=== PATIENT | female | born 1990 | race Caucasian/White ===

== ENCOUNTER 2017-03-13 02:14 | Inpatient (IN) | payer OTHER ==
[~2017-03-13] VITALS: Ht 162.6 cm; Wt 88.3 kg
[~2017-03-13 02:14] MED LIST: CEPH-443 PO
[2017-03-13 02:29] VITALS: Ht 162.6 cm; Wt 88.3 kg
[2017-03-13 02:30] VITALS: BP 117/61; PULSE 68; RESP 18
[2017-03-13] MEDS ORDERED: LACTATED RINGER'S 1,000 ML IV ONE (03:00)
[2017-03-13] MEDS ORDERED: MISOPROSTOL 200 MCG TAB PR PRN ×2 (03:00→11:00)
[2017-03-13] MEDS ORDERED: CEFAZOLIN 2 GM/50 ML (PMX) 50 ML IV SCH (03:00)
[2017-03-13] MEDS ORDERED: CARBOPROST 250 MCG INJ IM PRN ×2 (03:00→11:00)
[2017-03-13] MEDS ORDERED: METHYLERGONOVINE 0.2 MG INJ IM PRN ×2 (03:00→11:00)
[2017-03-13] MEDS ORDERED: OXYTOCIN 30 UNITS/LR 500 ML IV SCH (03:00)
[2017-03-13] MEDS ORDERED: OXYTOCIN 30 UNITS/LR 500 ML IV PRN ×2 (03:00→11:00)
--- NOTE | 2017-03-13 03:21 | TRIAGE ---
OB Triage Datetime Report Generated by CPN: 03/13/2017 03:21 Datetime: 03/13/2017 03:15 Assessment Type: Admission Assessment Vaginal Bleeding: None Maternal Assessment Level of Consciousness: Fully Conscious DTR's/Clonus: DTRs 2+; No Clonus Headache: Denies Blurred Vision: No Respiratory Effort: Unlabored; Regular Rhythm; Equal Expansion Breath Sounds, Left: Clear and Equal Breath Sounds, Right: Clear and Equal Nausea/Vomiting: Denies RUQ Epigastric Pain: Denies Lower Extremities Edema: None Degree: None Upper Extremities Edema: None Degree: None Facial Edema: None Fall Risk Assessment History of Falling: (0) No Secondary Diagnosis: (0) No Ambulatory Aid: (0) Bedrest/Nurse Assist IV Therapy: (20) Yes Gait: (0) Normal/Bedrest/Immobile Mental Status: (0) Oriented to Own Ability Fall Score: 20 Fall Risk Score Definition: No Risk: No action required Labor Evaluation Frequency: 3-7 Duration (sec)2399: 60-90 Quality: Strong Pattern: Normal: <= 5 Contractions in 10 Minutes Resting Tone [place]: Relaxed Heart Rate FHR Baseline Rate: 135 Variability: Moderate 6-25 bpm Accelerations: 15X15 Decelerations: None Category: Category I Pain Assessment Pain Scale: 9 Pain Presence: Intermittent Pain Type: Contraction Pain Location: Abdomen Pain Goal: 3 Membrane Status: Intact Datetime: 03/13/2017 02:38 Vaginal Exam Dilatation (cms): 3.0 Effacement (%): 90 Station: -2 Exam By: TM Datetime: 03/13/2017 02:32 Stage of : OB Triage Assessment Type: Triage Maternal Assessment Level of Consciousness: Fully Conscious DTR's/Clonus: DTRs 2+; No Clonus Headache: Denies Blurred Vision: No Respiratory Effort: Unlabored Nausea/Vomiting: Denies RUQ Epigastric Pain: Denies Lower Extremities Edema: None Degree: None Upper Extremities Edema: None Degree: None Facial Edema: None Datetime: 03/13/2017 02:26 Time of Arrival: 03/13/2017 02:44 EGA: 39.0 Arrived By: Wheelchair Arrived From: Emergency Dept Datetime: 03/13/2017 02:25 Time of Arrival: 03/13/2017 02:05 Arrived By: Wheelchair Arrived From: Emergency Dept Chief Complaint: CONTRACTIONS Movement: Present Contractions: Regular Time Contractions Began: 03/12/2017 22:00 Contractions: 5 MIN Rupture of Membranes: Denies Vaginal Bleeding: None Vaginal Discharge: Denies Recent Sexual Intercouse: Denies Abdominal Trauma: Not Applicable Patient Complaints: Contractions Time Provider Notified: 03/13/2017 02:43 Provider Notified: MANNY Initial Plan: VE Datetime: 03/13/2017 02:21 Monitor Mode: External Contraction Comments: TOCO APPLIED Monitor Mode: External US Comments: US APPLIED Datetime: 03/13/2017 02:16 Membrane Status: Intact
[2017-03-13 03:30] LABS: ADD SCAN DIFF NO
[2017-03-13 03:56] LABS: BASOPHILS % 0.3 % (0.0-2.0); EOSINOPHILS # 0.1 10^3/ul (0.0-0.5); EOSINOPHILS % 1.1 % (0.0-7.0); HEMATOCRIT 36.7 % (37.0-47.0); LYMPHOCYTES # 2.8 10^3/ul (0.8-2.9); LYMPHOCYTES % 28.1 % (15.0-51.0); MEAN CORPUSCULAR HEMOGLOBIN 29.3 pg (29.0-33.0); MEAN CORPUSCULAR HGB CONC 32.7 g/dl (32.0-37.0); MEAN CORPUSCULAR VOLUME 89.7 fl (82.0-101.0); MONOCYTE # 0.6 10^3/ul (0.3-0.9); MONOCYTES % 5.8 % (0.0-11.0); NEUTROPHIL # 6.4 10^3/ul (1.6-7.5); NEUTROPHILS % 63.9 % (39.0-77.0); PLATELET COUNT 213 10^3/UL (140-415); RED BLOOD COUNT 4.09 10^6/ul (4.20-5.40); RED CELL DISTRIBUTION WIDTH 13.4 % (11.5-14.5); WHITE BLOOD COUNT 10.1 10^3/ul (4.8-10.8)
[2017-03-13 03:59] LABS: INR 0.86; PROTIME 11.7 Sec (12.2-14.2); PT RATIO 0.9
[2017-03-13 04:59] LABS: PARTIAL THROMBOPLASTIN TIME 25.7 Sec (25.0-35.0)
[2017-03-13] MEDS ORDERED: morphine SULFATE/PF (10 MG/10 ML) INJ ONE (06:20)
[2017-03-13] MEDS ORDERED: METOCLOPRAMIDE 10 MG INJ ONE (06:21)
[2017-03-13] MEDS ORDERED: KETOROLAC 30 MG INJ ONE (06:21)
[2017-03-13] MEDS ORDERED: MEPERIDINE 25 MG INJ IV PRN (07:00)
[2017-03-13] MEDS ORDERED: ONDANSETRON 4 MG INJ IV PRN ×3 (07:00→11:00)
[2017-03-13] MEDS ORDERED: HYDROmorphONE (0.2 MG/ML) 10ML SYG IV PRN ×3 (07:00)
[2017-03-13] MEDS ORDERED: DIPHENHYDRAMINE 50 MG INJ IV PRN ×3 (07:00→11:00)
[2017-03-13] MEDS ORDERED: FENTAnyl 50 MCG/ML VIAL ONE (07:00)
[2017-03-13] MEDS ORDERED: METOCLOPRAMIDE 10 MG INJ IV PRN (07:00)
[2017-03-13] MEDS ORDERED: HYDROmorphONE 1 MG/ML SYG IV PRN ×3 (07:30)
[2017-03-13] MEDS ORDERED: NALOXONE (0.4 MG/ML) INJ IV PRN (07:30)
--- NOTE | 2017-03-13 08:10 | HP ---
Date/Time of Note Date/Time of Note DATE: 03/13/17 TIME: 08:00 OB - History Hx of Present Free Text/Dictation 26y.o at 39week with previous c/s in labor with intact membrane. ve 3cm 90% -2 prepare for repeat c/s after proper consent Chief Complaint: in labor : 3 Para: 1 Spontaneous : 0 Therapeutic : 0 Care: Good Care Ultrasounds: Normal mid trimester US Obstetrical Complications: None Medical Complications: None Past Family/Social History * Past Medical, Surgical, Family and Obstetric Histories reviewed from chart. Blood Type: O+ Rubella: immune RPR/VDRL: Negative GBS Status: Negative HBsAG: Negative OB Admission Exam Vital Signs Vital Signs Vital Signs Date Time Temp Pulse Resp B/P Pulse Ox O2 Delivery O2 Flow Rate FiO2 03/13/17 02:30 98.1 68 18 117/61 Room Air Physical Exam HEENT: WNL Heart: Rhythm Normal Lungs: Clear, Equal Abdomen: WNL Extremities: Normal Reflexes: Normal Cervical Dilatation: 3cm Effacement: Other (90%) Station: -2 Membranes: Intact Heart Rate: 140's Accelerations: Accelerations Present Decelerations: No Decelerations Varibility: Moderate Contractions on Admission: 6-10 Minutes Apart Intensity: Moderate Last 72 hours Lab Results CBC & BMP 03/13/17 02:54 OB Assessment/Plan Reason for admission: active labor Plan: Section SATHYA BRYANT MD Mar 13, 2017 08:10
[2017-03-13] MEDS: KETOROLAC 30 MG INJ IV PRN (09:37)
[2017-03-13 10:30] VITALS: BP 115/62; PULSE 69; RESP 16
[2017-03-13] MEDS ORDERED: LANOLIN 7 GM TUBE TOP PRN (11:00)
[2017-03-13] MEDS ORDERED: ZOLPIDEM 5 MG TAB PO PRN (11:00)
[2017-03-13] MEDS ORDERED: IBUPROFEN 600 MG TAB PO SCH (12:00)
[2017-03-13 12:31] VITALS: BP 126/58; PULSE 72; RESP 16
[2017-03-13] MEDS: LACTATED RINGER'S 1,000 ML IV SCH ×2 (12:31→18:59)
[2017-03-13 16:09] VITALS: BP 110/65; PULSE 61; RESP 14
[2017-03-13 19:45] VITALS: BP 107/65; PULSE 81; RESP 18
[2017-03-13] MEDS: SENNA/DOCUSATE NA (8.6MG/50MG) TAB PO SCH (21:00)
[2017-03-13 23:45] VITALS: BP 97/63; PULSE 88; RESP 17
[2017-03-14] MEDS: LACTATED RINGER'S 1,000 ML IV SCH (03:16)
[2017-03-14 03:45] VITALS: BP 106/53; PULSE 84; RESP 18
[2017-03-14] MEDS: KETOROLAC 30 MG INJ IV PRN (05:09)
[2017-03-14 07:39] LABS: ADD SCAN DIFF NO
[2017-03-14 07:47] LABS: BASOPHILS % 0.2 % (0.0-2.0); EOSINOPHILS % 0.3 % (0.0-7.0); HEMATOCRIT 28.4 % (37.0-47.0); HEMOGLOBIN 8.9 g/dl (12.0-16.0); LYMPHOCYTES # 1.9 10^3/ul (0.8-2.9); LYMPHOCYTES % 16.1 % (15.0-51.0); MEAN CORPUSCULAR HEMOGLOBIN 28.6 pg (29.0-33.0); MEAN CORPUSCULAR HGB CONC 31.3 g/dl (32.0-37.0); MEAN CORPUSCULAR VOLUME 91.3 fl (82.0-101.0); MEAN PLATELET VOLUME 12.8 fl (7.4-10.4); MONOCYTE # 0.5 10^3/ul (0.3-0.9); MONOCYTES % 4.7 % (0.0-11.0); PLATELET COUNT 139 10^3/UL (140-415); RED BLOOD COUNT 3.11 10^6/ul (4.20-5.40); RED CELL DISTRIBUTION WIDTH 13.8 % (11.5-14.5); WHITE BLOOD COUNT 11.5 10^3/ul (4.8-10.8)
[2017-03-14 08:00] VITALS: BP 98/58; PULSE 80; RESP 18
[2017-03-14] MEDS: IBUPROFEN 600 MG TAB PO SCH ×4 (08:00→23:49)
[2017-03-14] MEDS: SENNA/DOCUSATE NA (8.6MG/50MG) TAB PO SCH ×2 (09:34→22:17)
--- NOTE | 2017-03-14 10:58 | PN ---
Date/Time of Note Date/Time of Note DATE: 03/14/17 TIME: 10:31 Anesthesia post op note: A 26 year female s/p duramorph, POD #1 is doing well, pain is controlled, no headache,n/v, back pain, itching. back is clean. care per surgery team. Assessment/Plan VTE Prophylaxis VTE Prophylaxis Intervention: ambulation Lines/Catheters IV Catheter Type (from Nrsg): Peripheral IV Exam/Review of Systems Vital Signs Vitals Vital Signs Date Time Temp Pulse Resp B/P Pulse Ox O2 Delivery O2 Flow Rate FiO2 03/14/17 08:00 98.3 80 18 98/58 Room Air Intake and Output 03/13/17 03/13/17 03/14/17 14:59 22:59 06:59 Intake Total 500 ml 1575 ml 250 ml Output Total 900 ml 450 ml 1350 ml Balance -400 ml 1125 ml -1100 ml Results Result Diagram: 03/14/17 0640 Results 24 hrs Laboratory Tests Test 03/14/17 06:40 White Blood Count 11.5 H Red Blood Count 3.11 #L Hemoglobin 8.9 #L Hematocrit 28.4 #L Mean Corpuscular Volume 91.3 Mean Corpuscular Hemoglobin 28.6 L Mean Corpuscular Hemoglobin Concent 31.3 L Red Cell Distribution Width 13.8 Platelet Count 139 #L Mean Platelet Volume 12.8 H Neutrophils % 78.0 H Lymphocytes % 16.1 Monocytes % 4.7 Eosinophils % 0.3 Basophils % 0.2 Nucleated Red Blood Cells % 0.0 Neutrophils # 9.0 H Lymphocytes # 1.9 Monocytes # 0.5 Eosinophils # 0.0 Basophils # 0.0 Nucleated Red Blood Cells # 0.0 Medications Medications Current Medications Lactated Ringer's (Lr) 1,000 ml @ 125 mls/hr Q8H IV Last administered on t 03:16; Admin Dose 125 MLS/HR; Start 03/13/17 at 10:55 Oxycodone/ Acetaminophen (Percocet (5/ 325)) 1 tab Q4H PRN PO PAIN LEVEL 4-6; Start 03/13/17 at 11:00 Oxycodone/ Acetaminophen (Percocet (5/ 325)) 2 tab Q4H PRN PO PAIN LEVEL 7-10; Start 03/13/17 at 11:00 Simethicone (Mylicon) 160 mg Q8H PRN PO DISTENSION/GAS/BLOATING; Start at 11:00 Senna/Docusate Sodium (Senokot-S) 1 tab BID PO Last administered on 03/14/17t 09:34; Admin Dose 1 TAB; Start 03/13/17 at 21:00 Diphtheria/ Tetanus/Acell Pertussis 0.5 ml 0.5 ml ONCE ONCE IM* ; Start at 09:00; Stop 03/16/17 at 09:01 Oxytocin/Lactated Ringer's 500 ml @ 0 mls/hr ONCE PRN IV For Hemorrhage Management; Start 03/13/17 at 11:00 Methylergonovine Maleate (Methergine) 0.2 mg ONCE PRN IM VAGINAL BLEEDING; Start 03/13/17 at 11:00 Carboprost Tromethamine (Hemabate) 250 mcg ONCE PRN IM VAGINAL BLEEDING; Start 03/13/17 at 11:00 Misoprostol (Cytotec) 1,000 mcg ONCE PRN MO VAGINAL BLEEDING; Start 03/13/17 at 11:00 Diphenhydramine HCl (Benadryl) 25 mg Q6H PRN IV PRURITUS; Start 03/13/17 at 11: 00 Ondansetron HCl (Zofran Inj) 4 mg Q6H PRN IV NAUSEA AND/OR VOMITING; Start at 11:00 Zolpidem Tartrate (Ambien) 10 mg QHS PRN PO INSOMNIA; Start 03/13/17 at 11:00 Ibuprofen (Motrin) 600 mg Q6 PO ; Start 03/14/17 at 08:00 SANNA CHOE MD Mar 14, 2017 10:58
[2017-03-14 12:00] VITALS: BP 105/58; PULSE 79; RESP 18
[2017-03-14] MEDS: OXYCODONE/ACETAMINOPHEN (5/325) TAB PO PRN ×2 (12:59→18:15)
[2017-03-14 16:00] VITALS: BP 103/51; PULSE 80; RESP 20
--- NOTE | 2017-03-14 18:21 | PN ---
Date/Time of Note Date/Time of Note DATE: 03/14/17 TIME: 18:18 OB Subjective Subjective Subjective no flatus no specific c/o OB Objective Objective Objective vss afebrile abdomen soft wound dry lochia min calf no tenderness OB Assessment/Plan Other Assessment: stable postc/s #1 Other plan: as ordered SATHYA BRYANT MD Mar 14, 2017 18:21
[2017-03-14 20:00] VITALS: BP 108/54; PULSE 85; RESP 20
[2017-03-15] MEDS: OXYCODONE/ACETAMINOPHEN (5/325) TAB PO PRN ×2 (01:56→16:38)
[2017-03-15 04:30] VITALS: BP 107/57; PULSE 71
[2017-03-15] MEDS: IBUPROFEN 600 MG TAB PO SCH ×4 (05:46→23:50)
--- NOTE | 2017-03-15 06:44 | OPR ---
DATE OF OPERATION: 03/13/2017 PREOPERATIVE DIAGNOSIS: Intrauterine 39 weeks, previous section, in labor at 39 weeks. POSTOPERATIVE DIAGNOSES: 1. Intrauterine 39 weeks, previous section, in labor at 39 weeks. 2. Delivered normal female . OPERATION PERFORMED: Repeat low transverse section. ANESTHESIA: Spinal. ANESTHESIOLOGIST: Dr. Meyers REAL ESTATE SALES AGENT: Dr. Cota SURGEON: Marquis Hamlin MD ESTIMATED BLOOD LOSS: Approximately 600 mL PROCEDURE: Under appropriate induction of spinal anesthesia, the patient was placed in the frog pos ition. Bejarano catheter was introduced into the bladder under sterile condition, repositioned to supi ne. Abdominal wall was prepped and draped in usual aseptic manner. A transverse incision was made approximately 2 fingers above the pubic rami. Incision was carried down through subcutaneous tissue to the anterior rectus fascia, which was incised transversely in length of the incision. Fascial f lap was created by blunt and sharp dissection of tendinous attachment ____ rectus muscle split, vin toneal cavity was entered ____. Low portion of uterus was exposed. There were ____ adhesions of di stal portion of omentum from the previous surgery, especially on the right side of the pelvic area. The low portion of uterus was exposed. The incision was made above the uterovesical reflection abo ve this previous scar because the low portion was ____ and fibrotic. Incision was made in layer by layer transversely, reached the amniotic membrane which was ruptured, revealed clear amniotic fluid, and uterine incision was extended bilaterally with the bandage scissors, and normal female w as born, left occiput transverse position. Mouth and nose were cleaned, and cord was clamped and cu t, handed to the respiratory care personnel for further care. Cord blood was obtained. Placenta wa s removed manually, and cavity was completely explored after uterus was exteriorized. Incision was closed using #1 chromic catgut in continuous manner, but there was on the right lateral aspect exten scot of the incision site down to the low portion under the bladder which was separately closed incl uding the uterine incision and extension of the incision was putting together, and there was small h ematoma which was also taken care of after the first layer of closure. Rest of the uterine incision was closed using #1 chromic catgut in continuous manner including extension area, 0 chromic catgut was used for the first layer of closure. Uterus was relocated to the abdominal cavity. After irrig ation done, sponge count was correct, and rechecked right side of the uterine incision, and there wa s a little oozing, and then uterus brought out and then checked again, and additional 0 chromic catg ut was placed to control the bleeder separately, which was satisfactory controlled. Uterus was relo cated into abdominal cavity and the incisional site rechecked, which was intact. Final sponge count taken which was correct. A piece of Surgicel was placed on the right aspect of the incision. Annie etal peritoneum was closed using 0 chromic catgut in continuous manner. Muscle closed with 0 chromi c catgut in continuous manner. Fascia closed with #1 Vicryl in continuous manner in 2 segments afte r the bleeder controlled properly under the fascia, and a piece of Surgicel was placed under the fas tamara. Subcutaneous was irrigated with water, and this layer was approximated with 2-0 plain in corey nuous manner. Skin closed with Insorb. Steri-Strip applied. A pressure dressing applied. Estimat ed blood loss approximately 600 mL. The patient withstood procedure well, sent to the recovery room in good condition. Dictated By: MARQUIS NOLASCO/MAGGIE Conf#: [id number] DID#: [id number]
[2017-03-15 08:41] VITALS: BP 110/62; PULSE 80; RESP 17
[2017-03-15] MEDS: SENNA/DOCUSATE NA (8.6MG/50MG) TAB PO SCH ×2 (09:20→21:00)
--- NOTE | 2017-03-15 13:17 | PN ---
Date/Time of Note Date/Time of Note DATE: 03/15/17 TIME: 13:14 OB Subjective Subjective Subjective had bowel movement no c/o OB Objective Objective Objective vss afbrile abdomen soft wound dry lochia min calf no tenderness OB Assessment/Plan Other Assessment: satisfactory Other plan: d/s home in am SATHYA BRYANT MD Mar 15, 2017 13:17
[2017-03-15 15:20] VITALS: BP 105/59; PULSE 80; RESP 22
[2017-03-15 20:00] VITALS: BP 117/59; PULSE 73; RESP 20
[2017-03-16] MEDS: OXYCODONE/ACETAMINOPHEN (5/325) TAB PO PRN (01:45)
[2017-03-16 04:16] VITALS: BP 91/50; PULSE 65; RESP 20
[2017-03-16] MEDS: IBUPROFEN 600 MG TAB PO SCH ×2 (05:49→12:17)
[2017-03-16 09:00] VITALS: BP 104/70; PULSE 80; RESP 19
[2017-03-16] MEDS ORDERED: DIPHTH/TET/ACEL PERTUSS (ADULT) 0.5 ML VIAL IM* ONE (09:00)
[2017-03-16] MEDS: SENNA/DOCUSATE NA (8.6MG/50MG) TAB PO SCH (09:42)
--- NOTE | 2017-03-16 10:38 | DS ---
Date/Time of Note Date/Time of Note DATE: 03/16/17 TIME: 10:36 Obstetrical Discharge Record Final Diagnosis Final Diagnosis: Term delivered Section Section: Repeat Complications Augmentation: No Induction: No Rupture of Membranes: No Condition on Discharge Physical Assessment Last Vitals: vss afebrile Voiding: Yes Bowel Movement: Yes Breast: Soft, non-tender Fundus: Firm Abdomen and Incision: soft wound healing Calf Tenderness: No Patient Condition: Stable SATHYA BRYANT MD Mar 16, 2017 10:38
--- NOTE | 2017-03-16 10:39 | PD.PPDC ---
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
[2017-03-16 15:45] VITALS: BP 110/73; PULSE 85; RESP 18
== END 2017-03-16 16:15 | disposition home or self-care (01) | DRG 766 ==
LOC: OBT 02:14 → L-D 02:15 → OBT 02:49 → L-D 02:55 → PP1 10:21
PROVIDERS: ADMIT Obstetrics & Gynecology; ATTEND Obstetrics & Gynecology
PROC: 10D00Z1 Extraction of Products of Conception, Low, Open Approach (ICD-10-PCS; principal; 2017-03-13 06:45)
DX: O34.211 Maternal care for low transverse scar from previous cesarean delivery (principal); Z37.0 Single live birth; Z3A.39 39 weeks gestation of pregnancy
CPT/HCPCS: 85025; 85610; 85730; 86592; 86850; 86900; 86901; 87340; 90715; 99464; G0463; J0690; J1885; J2274; J2405; J2590; J2765; J3010; J7120